=== PATIENT | female | born 1960 | race Caucasian/White ===

== ENCOUNTER → 2019-05-24 | Outpatient (CLI) | payer MEDICAID ==
--- NOTE | 2019-05-24 16:51 | Diagnostic Imaging Report ---
PROCEDURE: US Non-ob pelvis comp/trans. TECHNIQUE: Multiple realtime grayscale images were obtained of the pelvis in various projections endovaginally. Transabdominal imaging was also performed. INDICATION: Postmenopausal bleeding. FINDINGS: Uterus measures 6.4 x 3.9 x 2.2 cm. Endometrium is 4 mm in thickness. No myometrial mass is identified. Right ovary is not visualized, due to overlying bowel gas. Left ovary measures 1.8 x 1.2 x 0.9 cm. Left ovary shows blood flow. No adnexal mass or free fluid is seen. IMPRESSION: Nonvisualized right ovary. The study is otherwise unremarkable. Dictated by: Dictated on workstation # [id number]
== END ==
LOC: RAD 10:39
PROVIDERS: ATTEND Obstetrics & Gynecology
DX: N95.0 Postmenopausal bleeding (principal); N93.0 Postcoital and contact bleeding; Z68.37 Body mass index [BMI] 37.0-37.9, adult
CPT/HCPCS: 76830; 76856

== ENCOUNTER 2019-06-03 05:57 | Outpatient (CLI) | payer MEDICAID ==
[~2019-06-03] VITALS: Ht 170.2 cm; Wt 108.9 kg
[2019-06-03] MEDS ORDERED: LOSA50TA63 PO (11:21)
[2019-06-03] MEDS ORDERED: HYDR-700 PO (12:25)
[2019-06-03] MEDS ORDERED: LOVA20TA2 PO (12:25)
[2019-06-03] MEDS ORDERED: RT-ALBUINH IH (12:25)
[2019-06-03] MEDS ORDERED: DULO20CA19 PO (12:25)
[2019-06-03] MEDS ORDERED: GABA-486 PO (12:25)
[2019-06-03] MEDS ORDERED: FLT22013 IH (12:25)
== END 2019-06-03 12:33 | disposition home or self-care (01) ==
LOC: PREOP 05:57
PROVIDERS: ATTEND Obstetrics & Gynecology
DX: Z01.818 Encounter for other preprocedural examination (principal)

== ENCOUNTER 2019-06-10 10:03 | Day surgery (SDC) | payer MEDICAID ==
[2019-06-10] VITALS (10 sets, daily range): BP systolic 125–173; BP diastolic 70–96
[~2019-06-10] VITALS: Ht 170.2 cm; Wt 108.9 kg
[~2019-06-10 10:03] MED LIST: BUPIVACAINE 0.25% 30 ML (SENSORCAINE) VIAL ONE; DULO20CA19 PO; FLT22013 IH; GABA-486 PO; HYDR-700 PO; LOSA50TA63 PO; LOVA20TA2 PO; RT-ALBUINH IH
[2019-06-10] MEDS ORDERED: LIDOCAINE PF 2% 5 ML (XYLOCAINE) VIAL ONE (10:12)
[2019-06-10] MEDS ORDERED: KETOROLAC 30 MG/ML VIAL ONE (10:12)
[2019-06-10] MEDS ORDERED: fentaNYL INJECTION 100 MCG/2 ML AMP ONE (10:12)
[2019-06-10] MEDS ORDERED: ONDANSETRON 4 MG/2 ML (SDV) Z0FRAN ONE (10:12)
[2019-06-10] MEDS ORDERED: DEXAMETHASONE 10 MG/ML (DECADRON) 1 ML VIAL ONE (10:12)
[2019-06-10] MEDS ORDERED: proPOfol 200 MG/20 ML (DIPRIVAN) VIAL IV ONE (10:12)
[2019-06-10] MEDS ORDERED: MIDAZOLAM 2 MG/2 ML (VERSED) VIAL ONE (10:12)
[2019-06-10] MEDS ORDERED: LACTATED RINGERS 1,000 ML IV PRN (10:26)
[2019-06-10 10:29] LABS: BASOPHILS % (AUTO) 0 % (0-10); EOSINOPHILS # (AUTO) 0.2 10^3/uL (0.0-0.3); EOSINOPHILS % (AUTO) 2 % (0-10); HEMATOCRIT 46 % (35-52); HEMOGLOBIN 15.1 G/DL (11.5-16.0); LYMPHOCYTES # (AUTO) 2.8 X 10^3 (1.0-4.0); LYMPHOCYTES % (AUTO) 23 % (12-44); MEAN CORPUSCULAR HEMOGLOBIN 30 PG (25-34); MEAN CORPUSCULAR HGB CONC 33 G/DL (32-36); MEAN CORPUSCULAR VOLUME 91 FL (80-99); MEAN PLATELET VOLUME 10.2 FL (7.4-10.4); MONOCYTES # (AUTO) 1.1 X 10^3 (0.0-1.0); MONOCYTES % (AUTO) 10 % (0-12); NEUTROPHILS # (AUTO) 7.7 X 10^3 (1.8-7.8); NEUTROPHILS % (AUTO) 65 % (42-75); PLATELET COUNT 278 10^3/uL (130-400); RED CELL DISTRIBUTION WIDTH 14.2 % (10.0-14.5); WHITE BLOOD COUNT 11.8 10^3/uL (4.3-11.0)
--- NOTE | 2019-06-10 10:29 | Progress Note-Pre Operative ---
Pre-Operative Progress Note H&P Reviewed The H&P was reviewed, patient examined and no changes noted. Date Seen by Provider: Jun 10, 2019 Time Seen by Provider: 10: Date H&P Reviewed: Jun 10, 2019 Time H&P Reviewed: : Pre-Operative Diagnosis: PMB, Dyspareunia KARL GUZMAN DO Jun 10, 2019 10:29
[2019-06-10] MEDS ORDERED: KETOROLAC 30 MG/ML VIAL IVP ONE (10:30)
[2019-06-10] MEDS ORDERED: HYDROcodone/APAP 5 MG/325 MG (LORTAB) TAB PO PRN (10:30)
[2019-06-10] MEDS ORDERED: ONDANSETRON 4 MG/2 ML (SDV) Z0FRAN IVP PRN (10:30)
[2019-06-10] MEDS ORDERED: D5 LR IV SOLUTION 1,000 ML IV SCH (10:30)
[2019-06-10] MEDS ORDERED: IBUP-1773 PO (10:32)
[2019-06-10] MEDS ORDERED: HYDR-4226 PO (10:32)
--- NOTE | 2019-06-10 10:34 | Discharge Inst-Women's Service ---
Discharge Inst-Women's Serv Depart Medication/Instructions New, Converted or Re-Newed RX: RX on Chart Problems Reviewed?: Yes Consults/Follow Up Additional Follow Up: Yes Orders/Referrals Dr. Guzman in 2-3 weeks Activity Activity: Activity as Tolerated Driving Instructions: No Driving for 1 Week NO SMOKING: NO SMOKING Nothing Inside Vagina: No Douching, No [place], No Tampons Diet Discharge Diet: No Restrictions Symptoms to Report to : Bleeding Excessive, Pain Increased, Fever Over 101 Degrees F, Vaginal Bleeding Increase, Questions/Concerns For Any Problems or Questions: Contact Your Physician KARL GUZMAN DO Jun 10, 2019 10:34
[2019-06-10] MEDS ORDERED: SEVOFLURANE (ULTANE) 15 ML INHAL SOLN ONE (10:52)
--- NOTE | 2019-06-10 12:34 | NUR ---
ALERT, RATES INTERMITTENT CRAMPY PELVIC PAIN 5. TAKING PO FLUIDS AND CRACKERS WITHOUT PROBLEM. LORTAB 5/325 MG, ONE TABLET, GIVEN PO. SCANT AMOUNT OF BRIGHT RED BLOODY DRAINAGE TO V-PAD.
--- NOTE | 2019-06-10 12:48 | Anesthesia-General Post-Op ---
General Patient Condition Mental Status/LOC: Same as Preop Cardiovascular: Satisfactory Nausea/Vomiting: Absent Respiratory: Satisfactory Pain: Controlled Complications: Absent Post Op Complications Complications None Follow Up Care/Instructions Patient Instructions None needed. Anesthesia/Patient Condition Patient Condition Patient is doing well, no complaints, stable vital signs, no apparent adverse anesthesia problems. No complications reported per nursing. NUVIA CHESTER CRNA Jun 10, 2019 12:48
--- NOTE | 2019-06-10 13:15 | NUR ---
PAIN RATED 3. ALERT, CHEERFUL. STATES SHE IS READY FOR DISMISSAL. UP TO BR, GAIT STEADY, VOIDS, CONTINUES TO HAVE SCANT TO LIGHT AMOUNT OF BLOODY DRAINAGE ON V-PAD. AWAITING RIDE HOME.
--- NOTE | 2019-06-10 21:16 | OPERATIVE REPORT ---
DATE OF SERVICE: 06/10/2019 PREOPERATIVE DIAGNOSES: 1. A 59-year-old female with postmenopausal bleeding. 2. BMI greater than 40. 3. Dyspareunia. POSTOPERATIVE DIAGNOSES: 1. A 59-year-old female with postmenopausal bleeding. 2. BMI greater than 40. 3. Dyspareunia. PROCEDURE: D and C. SURGEON: Karl Guzman DO ANESTHESIA: General LMA. ESTIMATED BLOOD LOSS: Minimal. URINE OUTPUT: 100 mL drained at the start of the procedure. FLUIDS: 500 mL of lactate Ringer solution. FINDINGS: A grossly normal-appearing external female genitalia with atrophy consistent for age. Scant amount of endometrial curetting tissue collected. SPECIMEN SENT: Endometrial curettings. INDICATION FOR PROCEDURE: This is a 59-year-old female is a patient counseled in my office for episodes of postmenopausal bleeding associated with dyspareunia. On evaluation in the office, there was some cervical stenosis noted and unable to perform endometrial biopsy. We discussed to proceed with ultrasound and D and C. Risks of the procedure were discussed with the patient in detail including risks of bleeding, infection, damage to surrounding structures including, but not limited to bowel, bladder, ureter, kidneys, possible postoperative complications, recovering timeframe were all discussed with the patient. After all of her questions were answered, consent was obtained and the patient was taken to the operating room. OPERATIVE REPORT IN DETAIL: Once in the operating room, anesthesia was found to be adequate, she was placed in dorsal lithotomy position, prepped and draped in normal sterile fashion. A timeout was performed. The bladder was then drained using straight catheterization. Weighted speculum was inserted to the patient's vagina. Right angle retractor was used to visualize the cervix, which was grasped with a long single tooth tenaculum. Once I have grasped on the cervix, I am able to perform a paracervical block at 3 and 9 o'clock positions using 0.25% Marcaine, 5 mL were injected at each site. Care was taken to aspirate for injecting. I then gently sound the uterine cavity, depth was found to be 7 cm. I then gently dilated the cervix using Zhane dilators to maximum dilatation of approximately 8 mm, at which point, I am able to perform endometrial curetting using a small endometrial curette. A scant to moderate amount of tissue is collected and sent as endometrial curettings. All the instruments were removed from the patient's vagina at that point. There was no active bleeding noted from the tenaculum site. The patient tolerated the procedure well and sent to recovery area in stable condition. Lap and sponge counts were correct at the end of the procedure. Instrument count was correct as well. Job ID: [id number] DocumentID: [id number] Dictated Date: 06/10/2019 11:07:36 Tool And Die [employer] Date: 06/10/2019 21:16:35 Dictated By: KARL GUZMAN DO
== END 2019-06-10 13:45 | disposition home or self-care (01) ==
LOC: SDC 10:03
PROVIDERS: ATTEND Obstetrics & Gynecology
DX: N95.0 Postmenopausal bleeding (principal); N94.10 Unspecified dyspareunia; N88.2 Stricture and stenosis of cervix uteri; E78.5 Hyperlipidemia, unspecified; G47.33 Obstructive sleep apnea (adult) (pediatric); J45.909 Unspecified asthma, uncomplicated; I10 Essential (primary) hypertension; E66.9 Obesity, unspecified; F41.9 Anxiety disorder, unspecified; F17.210 Nicotine dependence, cigarettes, uncomplicated; Z68.37 Body mass index [BMI] 37.0-37.9, adult; Z99.89 Dependence on other enabling machines and devices; Z79.899 Other long term (current) drug therapy; Z90.89 Acquired absence of other organs; Z85.828 Personal history of other malignant neoplasm of skin; Z80.0 Family history of malignant neoplasm of digestive organs; Z83.3 Family history of diabetes mellitus; Z82.49 Family history of ischemic heart disease and other diseases of the circulatory system
CPT/HCPCS: 36415; 85025; 86850; 86900; 86901; 87081